=== PATIENT | male | born 1995 | race Caucasian/White ===

== ENCOUNTER 2024-08-01 16:44 | Emergency (ER) | payer SELFPAY ==
[2024-08-01] MEDS: Sodium Chloride 0.9% 1,000 ML IV STA ×2 (17:16→18:01)
[2024-08-01] MEDS: Ondansetron 4 MG/2 ML SDV IVPUSH STA ×2 (17:17→18:01)
[2024-08-01] MEDS: Morphine 4 MG/ML Syringe IVPUSH STA (17:17)
[2024-08-01 17:27] LABS: BASOPHILS ABSOLUTE AUTO 0.11 K/uL (0.00-0.20); BASOPHILS PERCENT AUTO 0.9 % (0.0-1.0); EOSINOPHILS ABSOLUTE AUTO 0.18 K/uL (0.00-0.45); EOSINOPHILS PERCENT AUTO 1.5 % (0.0-6.0); HEMOGLOBIN 16.1 g/dL (14.0-18.0); IMMATURE GRAN ABSOLUTE AUTO 0.14 K/uL (0.00-0.05); IMMATURE GRAN PERCENT AUTO 1.2 % (0.0-0.4); LYMPHOCYTES ABSOLUTE AUTO 2.54 K/uL (1.00-4.80); LYMPHOCYTES PERCENT AUTO 21.7 % (24.0-44.0); MEAN CORPUSCULAR HEMOGLOBIN 29.1 pg (28.0-32.0); MEAN CORPUSCULAR VOLUME 83.2 fL (83.0-99.0); MEAN PLATELET VOLUME 9.9 fL (9.4-12.4); MONOCYTES PERCENT AUTO 6.8 % (0.0-8.0); NEUTROPHILS ABSOLUTE AUTO 7.96 K/uL (1.80-7.70); NEUTROPHILS PERCENT AUTO 67.9 % (41.0-71.0); PLATELET COUNT,PLT 317 K/uL (150-400); RED BLOOD CELL COUNT 5.53 M/uL (4.52-5.90); WHITE BLOOD CELL COUNT,WBC 11.73 K/uL (3.9-11.3)
[2024-08-01 17:53] LABS: A/G RATIO 1.1 (0.9-1.6); ALBUMIN 4.1 g/dL (3.4-5.0); BILIRUBIN TOTAL 0.5 mg/dL (0.2-1.0); CALCIUM 9.7 mg/dL (8.5-10.1); CARBON DIOXIDE,CO2 28.7 mmol/L (21.0-32.0); CREATININE 1.2 mg/dL (0.8-1.3); EST CRCL DRUG DOSING (CG) 94.63 mL/min; POTASSIUM,K 3.5 mmol/L (3.5-5.1); PROTEIN TOTAL,TP 7.9 g/dL (6.4-8.2)
[2024-08-01] MEDS: HYDROmorphone 1 MG/ML Syringe IVPUSH STA ×2 (18:02→19:24)
[2024-08-01 18:16] LABS: BILIRUBIN,URINE NEGATIVE (NEGATIVE); GLUCOSE,URINE NEGATIVE (NEGATIVE); KETONES,URINE TRACE mg/dL (NEGATIVE); LEUKOCYTE ESTERASE,URINE NEGATIVE (NEGATIVE); NITRITE,URINE NEGATIVE (NEGATIVE); OCCULT BLOOD,URINE LARGE (NEGATIVE); PH,URINE 7.5 (5.0-8.0); PROTEIN,URINE NEGATIVE (NEGATIVE)
[2024-08-01 18:30] LABS: APPEARANCE,URINE CLOUDY; COLOR,URINE DARK YELLOW
[2024-08-01 18:31] LABS: RBC,URINE 26-30 (0-2/HPF); WBC,URINE 0-2 (0-5/HPF)
[2024-08-01 18:32] LABS: BACTERIA,URINE FEW (NEGATIVE); EPITHELIAL CELLS,URINE RARE (NONE-FEW)
[2024-08-01] MEDS: Iopamidol 755 MG/ML 500 ML Multipack Bottle IVPUSH STA (19:03)
[2024-08-01] MEDS: Ketorolac 30 MG/ML SDV IVPUSH STA (19:23)
[2024-08-01 19:47] LABS: C. TRACHOMATIS BY PCR NOT DETECTED; N. GONORRHOEAE BY PCR NOT DETECTED
== END 2024-08-01 20:30 | disposition home or self-care (01) ==
LOC: MW.ED 16:44
DX: N13.2 Hydronephrosis with renal and ureteral calculous obstruction (principal); Z75.8 Other problems related to medical facilities and other health care; Z90.49 Acquired absence of other specified parts of digestive tract
CPT/HCPCS: 36415; 74177; 80053; 81001; 83690; 85025; 87491; 87591; 96361; 96374; 96375; 96376; 99284; J1170; J1885; J2270; J2405; J7030; Q9967